=== PATIENT | female | born 1990 | race Caucasian/White ===

== ENCOUNTER 2018-02-19 09:13 | Emergency (ER) ==
[2018-02-19 09:17] VITALS: BP 128/83; TEMP 97.8; BMI 35.4
--- NOTE | 2018-02-19 09:30 | ED.PDOC ---
General ED Provider: Dr. FABBY EDDY Chief Complaint: Eye Problem Stated Complaint: right eye red, photophobia Time Seen by Physician: 09:14 (see photos) Mode of Arrival: Walk-In Information Source: Patient Exam Limitations: No limitations Referred to ED by: Other (no occular trauma reported , pt does wear contact lenses ) Nursing and Triage Documentation Reviewed and Agree: Yes Does patient meet sepsis criteria?: Yes If yes, has appropriate treatment been initiated?: No System Inflammatory Response Syndrome: Not Applicable Sepsis Protocol: For patient's 13 years and over: Temp is 96.8 and below OR 101 and greater Pulse >90 BPM Resp >20/minute Acutely Altered Mental Status Are patient's symptoms suggestive of a new infection, such as: -Pneumonia -Skin, Soft Tissue -Endocarditis -UTI -Bone, Joint Infection -Implantable Device -Acute Abdominal Infection -Wound Infection -Meningitis -Blood Stream Catheter Infection -Unknown EENT Complaint Exam - Eye Complaint/Exam Onset/Duration: 2 days Symptoms Are: Still present Timing: Constant Initial Severity: Moderate Current Severity: Moderate Location: Right Character: Reports: Dull Aggravating: Reports: Light Alleviating: Reports: Darkness Associated Signs and Symptoms: Reports: Photophobia, Clear drainage. Denies: Purulent drainage, Vision impairment, Fever, Swelling Related History: Reports: Similar episode Eye Surgical History: Reports: None Penetrating Injury Risk Factors: None Globe Rupture Risk Factors: None Acute Glaucoma Risk Factors: None Optic Artery Occlusion Risk Factors: None Visual Field: Normal Extraocular Movement: Normal Orbit Findings: Normal Globe Findings: Intact Lid Findings: Normal Conjunctival Findings: Red Corneal Findings: Clear Fluorescein Uptake: No Fundi: Normal Differential Diagnoses: Conjunctivitis Review of Systems - Review Of Systems Constitutional: Reports: No symptoms Eyes: Reports: Vision change, Drainage Ears, Nose, Mouth, Throat: Reports: No symptoms Respiratory: Reports: No symptoms Cardiac: Reports: No symptoms GI: Reports: No symptoms : Reports: No symptoms Musculoskeletal: Reports: No symptoms Skin: Reports: No symptoms Neurological: Reports: No symptoms Endocrine: Reports: No symptoms Hematologic/Lymphatic: Reports: No symptoms All Other Systems: Reviewed and Negative Past Medical History - Past Medical History Previously Healthy: Yes Endocrine: Reports: None Cardiovascular: Reports: None Respiratory: Reports: None Hematological: Reports: None Gastrointestinal: Reports: None Genitourinary: Reports: None Neuro/Psych: Reports: None Musculoskeletal: Reports: None Cancer: Reports: None Last Menstrual Period: 3 weeks - Surgical History General Surgical History: Reports: None - Family History Family History: Reports: None - Social History Smoking Status: Current every day smoker Hx Substance Use: No Alcohol Screening: Occasionally Physical Exam - Physical Exam Appearance: Well-appearing, No pain distress, Well-nourished Eyes: Conjunctiva inflammed (right ) ENT: Ears normal, Nose normal, Oropharynx normal Respiratory: Airway patent, Breath sounds clear, Breath sounds equal, Respirations nonlabored Cardiovascular: RRR, Pulses normal, No rub, No murmur GI/: Soft, Nontender, No masses, Bowel sounds normal, No Organomegaly Musculoskeletal: Normal strength, ROM intact, No edema, No calf tenderness Skin: Warm, Dry, Normal color Neurological: Sensation intact, Motor intact, Reflexes intact, Cranial nerves intact, Alert, Oriented Psychiatric: Affect appropriate, Mood appropriate Critical Care Note - Critical Care Note Total Time (mins): 0 Course - Course Vital Signs: Temp Pulse Resp BP Pulse Ox 02/19/18 09:13 97.8 F 85 18 128/83 98 Departure - Departure Time of Disposition: 09:32 (spoke to doctor brush pt will be seen,) Disposition: HOME SELF-CARE Discharge Problem: Conjunctivitis Qualifiers: Conjunctivitis type: unspecified Laterality: right Qualified Code(s): H10.9 - Unspecified conjunctivitis Instructions: Conjunctivitis (ED) Condition: Good Pt referred to PMD for follow-up: Yes IPMP verified?: No Allergies/Adverse Reactions: Allergies Sulfa (Sulfonamide Antibiotics) Adverse Reaction (Verified 02/19/18 09:17) sulfur dioxide Adverse Reaction (Verified 02/19/18 09:17) mushrooms Adverse Reaction (Uncoded 06/27/13 11:50) shrimp Adverse Reaction (Uncoded 06/27/13 11:50) Home Medications: Ambulatory Orders 1 [No Reported Medications] 06/27/13
== END 2018-02-19 09:41 | disposition home or self-care (01) ==
LOC: ED 09:13
DX: H10.9 Unspecified conjunctivitis (principal); F17.210 Nicotine dependence, cigarettes, uncomplicated
CPT/HCPCS: 99281